=== PATIENT | female | born 1985 | race Two or more races ===

== ENCOUNTER 2023-12-07 08:01 | Inpatient (IN) ==
[2023-12-07] MEDS ORDERED: Lidocaine 1% VIAL 10 MG/ML 30 ML VIAL INJ PRN (09:48)
[2023-12-07] MEDS ORDERED: Buffered Lidocaine 1% SYRIN 1 ml INTRADERM ONE (09:48)
[2023-12-07] MEDS: Oxytocin in LR 20,000 MILLI.UNIT/1,000 ML BAG IV SCH (10:30)
[2023-12-07] MEDS: Lactated Ringers 1000 ml BAG 1,000 ML IV SCH (10:31)
[2023-12-07 11:08] LABS: Hematocrit 37.1 % (35-45); Hemoglobin 12.4 g/dL (11.5-14.3); Mean Corpuscular Hemoglobin 31.4 pg (27-33); Mean Corpuscular Hgb Conc 33.4 g/dL (31-36); Mean Corpuscular Volume 94.2 fL (80-97); Red Blood Count 3.94 10^6/uL (3.63-4.92); Red Cell Distribution Width 13.7 % (12-17); White Blood Count 5.8 10^3/uL (3.8-11.8)
[2023-12-07 11:39] LABS: ABS Lymphocytes 1.3 10^3/uL (1.0-4.8); ABS Monocytes 0.4 10^3/uL (0.0-0.9); Eosinophil % 0.5 %; Mean Platelet Volume 11.6 fL (7.5-11.2); Nucleated Red Blood Cells % 0.1 %/100WBC (0.0-0.8); Platelet Count 156 10^3/uL (150-450)
[2023-12-07 16:02] LABS: Urine Benzodiazepine Screen None Detected (None Detect); Urine Cannabinoids Screen None Detected (None Detect); Urine Opiates Screen None Detected (None Detect)
[2023-12-08] MEDS: Lactated Ringers 1000 ml BAG 1,000 ML IV ONE ×2 (15:45→17:00)
[2023-12-08] MEDS ORDERED: Phenylephrine 40 mcg/mL 10mL (400mcg) SYRINGE IV PUSH PRN ×2 (17:57)
[2023-12-08] MEDS ORDERED: Sodium Citrate/Citric Acid LIQ 15 ML UDC PO PRN (17:57)
[2023-12-08] MEDS: OBEPIDURAL (200 ML) 200 ML EPIDURAL SCH (18:41)
[2023-12-08 18:45] LABS: Urine Appearance Clear; Urine Bilirubin Negative (Negative); Urine Blood 1+ (Negative); Urine Color Light-Yellow; Urine Glucose Negative (Negative); Urine Ketones Negative (Negative); Urine Nitrite Negative (Negative); Urine Protein Negative (Negative); Urine Specific Gravity 1.011 (1.002-1.030); Urine Urobilinogen Negative (Negative)
[2023-12-08 18:48] LABS: Urine Bacteria 1+ /HPF (Absent); Urine Red Blood Cell 3+(>10/hpf) /HPF (0-Trace); Urine Squamous Epithelial Cell Present /HPF (Absent); Urine White Blood Cell Trace(0-5/hpf) /HPF (0-Trace)
[2023-12-08] MEDS ORDERED: miSOPROStol 100 mcg TAB PO ONE (21:16)
[2023-12-08] MEDS: Lactated Ringers 1000 ml BAG 1,000 ML IV SCH (22:59)
[2023-12-09] MEDS ORDERED: Glycerin ADULT 2.4 gm SUPP PR PRN (02:57)
[2023-12-09] MEDS ORDERED: Lactated Ringers 1000 ml BAG 1,000 ML IV SCH (03:00)
[2023-12-09] MEDS ORDERED: Oxytocin in LR 20,000 MILLI.UNIT/1,000 ML BAG IV SCH (03:00)
[2023-12-09] MEDS: OBEPIDURAL (200 ML) 200 ML EPIDURAL ONE (06:02)
[2023-12-09] MEDS: Lidocaine 1.5% EPI 1:200,000 30 ML SDV ONE (06:02)
[2023-12-09] MEDS: Lidocaine 1% VIAL 10 MG/ML 30 ML VIAL ONE (06:03)
[2023-12-09] MEDS: Dibucaine 1% OINT 28.35 GM TUBE PR PRN (18:12)
[2023-12-10 07:00] LABS: ABS Lymphocytes 1.8 10^3/uL (1.0-4.8); ABS Monocytes 0.5 10^3/uL (0.0-0.9); ABS Neutrophils 6.7 10^3/uL (1.5-7.6); Eosinophil % 0.5 %; Hematocrit 28.3 % (35-45); Hemoglobin 9.7 g/dL (11.5-14.3); Lymphocyte % 19.4 %; Mean Corpuscular Hemoglobin 32.7 pg (27-33); Mean Corpuscular Hgb Conc 34.5 g/dL (31-36); Mean Platelet Volume 10.8 fL (7.5-11.2); Platelet Count 126 10^3/uL (150-450); Red Blood Count 2.98 10^6/uL (3.63-4.92); Red Cell Distribution Width 14.1 % (12-17); White Blood Count 9.1 10^3/uL (3.8-11.8)
[2023-12-11 09:01] VITALS: BP 100/58
[2023-12-11] MEDS: Witch Hazel PAD JAR TOPICAL PRN (11:22)
== END 2023-12-11 14:30 | disposition home or self-care (01) | DRG 560 ==
LOC: MCHOBOUT 08:01 → MCHOB 09:23
PROVIDERS: ATTEND Advanced Practice Midwife